=== PATIENT | female | born 1960 | race Two or more races ===

== ENCOUNTER 2019-07-13 17:39 | Emergency (ER) | payer MEDICAID ==
[~2019-07-13] VITALS: Ht 154.9 cm; Wt 68.2 kg
[~2019-07-13 17:39] MED LIST: AMA1T PO; CITA10TA9; DOCU-28 PO; FAMO40TA73 PO; HYDR-4383 PO; METF500T20 PO; ONDA4TAB6 PO
[2019-07-13] MEDS ORDERED: ondansetron/PF 4mg/2ml inj IV ONE (19:40)
[2019-07-13 19:48] LABS: BASOPHILS % (AUTO) 0.2 % (0-1); EOSINOPHILS % (AUTO) 0 % (0-6); HEMATOCRIT 39.2 % (35.0-45.0); HEMOGLOBIN 13.3 g/dl (12.0-16.0); LYMPHOCYTES # (AUTO) 0.8 X10'3 (1.1-4.8); LYMPHOCYTES % (AUTO) 5.7 % (21-51); MEAN CORPUSCULAR HEMOGLOBIN 29.6 PG (27.0-31.0); MEAN CORPUSCULAR VOLUME 87.1 FL (78-98); MEAN PLATELET VOLUME 8.5 FL (7.4-10.4); MONOCYTES # (AUTO) 0.2 X10'3 (0-0.9); NEUTROPHILS # (AUTO) 13.8 X10'3 (1.8-7.7); NEUTROPHILS % (AUTO) 93.1 % (42-75); PLATELET COUNT 306 X10'3 (140-440); RED CELL DISTRIBUTION WIDTH 12.8 % (11.5-14.5); WHITE BLOOD COUNT 14.8 X10'3 (4.5-11.0)
--- NOTE | 2019-07-13 19:57 | NUR ---
Family informs RN that pt. c/o L side feeling "numb." Pt. evaled immediately and appears to have L sided facial droop. MD made aware and new order received to call stroke alert level I and stroke protocol orders.
[2019-07-13 20:00] LABS: ALANINE AMINOTRANSFERASE 32 U/L (12-78); ALBUMIN 4.1 G/DL (3.4-5.0); ALKALINE PHOSPHATASE 110 IU/L (46-116); ANION GAP 11 (8-16); ASPARTATE AMINO TRANSFERASE 20 U/L (10-37); BILIRUBIN,TOTAL 0.3 MG/DL (0.1-1.0); BLOOD UREA NITROGEN 11 MG/DL (7-18); BUN/CREATININE RATIO 13.3 (6.6-38.0); CHLORIDE 102 MMOL/L (99-107); CREATININE 0.83 MG/DL (0.40-0.90); GLUCOSE 327 MG/DL (70-104); LIPASE 87 U/L (73-393); POTASSIUM 3.9 MMOL/L (3.5-5.1); SODIUM 139 MMOL/L (135-145); TOTAL CARBON DIOXIDE 26.1 MMOL/L (24-32); TOTAL PROTEIN 8.2 G/DL (6.4-8.2); eGFR 71 ML/MIN
[2019-07-13] MEDS ORDERED: iohexol 350MG/ML 100ml bottle IV ONE (20:24)
[2019-07-13 20:30] LABS: PARTIAL THROMBOPLASTIN TIME 22 SECONDS (22-32)
[2019-07-13 20:33] LABS: TROPONIN I < 0.04 NG/ML (0.0-0.05)
--- NOTE | 2019-07-13 20:51 | NUR ---
Stroke nurse Monse informed MD Hugo IRAHETA, and myself that after evaluation with the neurologist, the patient will need transfer for neuro surgery services, cruz catheter insertion, and mannitol.
[2019-07-13] MEDS ORDERED: normal saline 1000ml 1,000 ML IV ONE (21:06)
[2019-07-13 21:18] LABS: CLARITY,URINE CLEAR (Clear); COLOR,URINE YELLOW (Yellow); GLUCOSE, URINE >=1000 mg/dl (Neg); KETONES,URINE 40 mg/dl (Neg); LEUKOCYTE ESTERASE ,URINE NEGATIVE (Neg); NITRITES, URINE NEGATIVE (Neg); OCCULT BLOOD,URINE TRACE-INTACT (Neg); PROTEIN,URINE NEGATIVE (Neg); UROBILINOGEN,URINE 0.2 E.U/dL (0.2-1.0)
[2019-07-13 21:31] LABS: UA COLLECTION TYPE FOLEY CATH
[2019-07-13 21:32] LABS: BACTERIA,URINE NONE SEEN /HPF (Neg); RBC,URINE 0-2 /HPF (0-2); SQUAMOUS EPITHELIAL CELL,UR FEW /LPF (FEW); WBC,URINE NONE SEEN /HPF (0-4)
[2019-07-13] MEDS ORDERED: MANNITOL IV ONE (21:40)
[2019-07-13] MEDS ORDERED: DEXTROSE 5% IV ONE (21:40)
[2019-07-13] MEDS ORDERED: WATER IV ONE (21:40)
[2019-07-13] MEDS ORDERED: LINA5TAB4 (21:41)
[2019-07-13] MEDS ORDERED: ATOR-2 PO (21:41)
[2019-07-13] MEDS ORDERED: INSU100V9 SQ (21:41)
[2019-07-13] MEDS ORDERED: GLIM4TAB7 PO (21:41)
[2019-07-13] MEDS ORDERED: AMIT25TA9 PO (21:41)
[2019-07-13 23:51] VITALS: BP 146/75
== END 2019-07-13 23:53 | disposition short-term general hospital (02) ==
LOC: ER 17:39
DX: I63.9 Cerebral infarction, unspecified (principal); R60.9 Edema, unspecified; E11.65 Type 2 diabetes mellitus with hyperglycemia; F32.9 Major depressive disorder, single episode, unspecified; Z98.890 Other specified postprocedural states; Z79.4 Long term (current) use of insulin; Z79.899 Other long term (current) drug therapy
CPT/HCPCS: 36415; 70450; 70496; 70498; 71045; 80053; 81001; 82948; 83690; 84484; 85025; 85610; 85730; 93005; 96365; 96375; 99285; J2150; J2405; J7030; J7060; Q9967; 96360; 96374